=== PATIENT | male | born 1970 | race Caucasian/White ===

== ENCOUNTER 2021-04-12 15:31 | Outpatient (REF) | payer OTHER, SELFPAY | END 2021-04-12 15:32 | disposition home or self-care (01) | LOC: HO.LNP 15:31 | PROVIDERS: Visit Provider Physician Assistant Medical | DX: J98.8 Other specified respiratory disorders (principal); Z20.822 Contact with and (suspected) exposure to COVID-19 | CPT/HCPCS: U0003; U0005 ==

== ENCOUNTER 2021-11-13 14:59 | Outpatient (REF) | payer OTHER, SELFPAY ==
[2021-11-13 16:41] LABS: Anion Gap 14 (12-20); Blood Urea Nitrogen 16 mg/dL (9-16); Calcium 9.4 mg/dL (8.4-10.2); Carbon Dioxide 23 mmol/L (22-29); Chloride 103 mmol/L (96-108); Estimated Glomerular Filt Rate > 60; Glucose Random 269 mg/dL (60-115); Potassium 4.2 mmol/L (3.3-5.1); Sodium 136 mmol/L (135-145)
== END 2021-11-13 15:00 | disposition home or self-care (01) ==
LOC: HO.HMGCLDS 14:59
PROVIDERS: PCP Hospitalist; Visit Provider Hospitalist
DX: M54.42 Lumbago with sciatica, left side (principal)
CPT/HCPCS: 36415; 80048

== ENCOUNTER 2024-08-17 11:07 | Emergency (ER) | payer MEDICAID, SELFPAY ==
[2024-08-17 11:31] VITALS: BP 168/78; PULSE 74; RESP 18; TEMP 36.7; O2SAT 95; BMI 33.5
--- NOTE | 2024-08-17 11:31 | ED_ITS ---
HPI - Skin/Abscess/Foreign Bdy General Chief complaint: Skin/Abscess/Foreign Body Stated complaint: cyst on back Time Seen by Provider: 08/17/24 12:00 Source: patient and RN notes reviewed Mode of arrival: ambulatory Limitations: no limitations History of Present Illness ED Provider: Elisa Chavez PA-C HPI narrative: This is a 53-year-old male, prediabetic, who presents emergency department with concerns for cyst on back. Patient states that he has had this excised twice, once in 2014, another time several years ago. He states that over the last several days he has had increased pain and swelling. He also states that he has had increased drainage from this region. Denies any fevers or chills. He has been applying warm compresses to the ear without any relief. No other complaints or concerns at this time. MD complaint: abscess/boil Onset (ago): year(s) Relieving factors: none Exacerbating factors: none Context: none Associated symptoms: denies other symptoms Treatments prior to arrival: none Related Data Previous Rx's ?Medication ?Instructions ?Recorded cyclobenzaprine 10 mg tablet 10 mg PO TID PRN muscle spasm #90 10/31/21 tabs gabapentin 300 mg capsule 300 mg PO BEDTIME #30 caps 10/31/21 FreeStyle Lancets 28 gauge #100 ea 11/24/21 (lancets) FreeStyle System Kit #1 ea 11/24/21 (blood-glucose meter) metformin 500 mg tablet,extended 500 mg PO BID #60 tabs 12/02/21 release 24 hr ibuprofen 600 mg tablet 600 mg PO Q6H PRN for pain #90 tabs 12/17/21 blood sugar diagnostic (FreeStyle #100 ea 12/29/21 Test strips) cephalexin 500 mg capsule 500 mg PO QID 5 days #20 caps 08/17/24 Allergies Allergy/AdvReac Type Severity Reaction Status Date / Time No Known Allergies Allergy Verified 08/17/24 11:33 Review of Systems 2 Review of Systems: Yes all other systems are reviewed and are negative Constitutional: Constitutional: Reports as per HPI [facility] Family History Family History Father Arthritis Mother Arthritis Brother Diabetes Social History Social History Household Members: Spouse Housing: House Alcohol intake: current Alcohol intake frequency: holidays/special occasions only Patient Tobacco Use Status: Never used Tobacco Advance Directives: No Advance Directives Information Provided: Yes Do you have a plan to hurt others: No Plan Physical Exam 2 Vital Signs: Vital Signs: Last Vital Signs Temp 98.0 F 08/17/24 11:31 Pulse 74 08/17/24 11:31 Resp 18 08/17/24 11:31 BP 168/78 H 08/17/24 11:31 Pulse Ox 95 08/17/24 11:31 O2 Del Method Room Air 08/17/24 11:31 BMI result Body Mass Index 33.5 Const: General: cooperative, comfortable and no acute distress O rientation/consciousness: patient oriented x3 Limitations: no limitations HEENT: Head: Yes normal to inspection, Yes normocephalic and Yes atraumatic Ears: hearing grossly normal bilaterally General nose exam: Normal external nose present Face and sinus: Yes normal facial exam Mouth: Normal oral and palatal mucosa present, oropharynx normal and moist mucous membranes Throat: Yes posterior oropharynx normal Eyes: General: appearance normal, both eyes and all related structures E yelids: Yes eyelids normal Conjunctivae: conjunctivae normal Sclerae: s clerae normal Pupils: Equal, round and reactive pupils present EOM: EOMs intact bilaterally Neck: Neck: Yes normal visual inspection, Yes full ROM and Yes no lymphadenopathy Lymphatic: no lymphadenopathy noted Chest: Chest palpation & inspection: normal inspection of the chest Resp: Effort & Inspection: normal respiratory effort and able to speak in complete sentences Auscultation: clear to auscultation bilaterally, no crackles, no rales, no rhonchi and no wheezes Cardio: Rate: regular rate Rhythm: regular rhythm Heart sounds: S1 normal heart sound present and S2 normal heart sound present GI: Inspection: Yes normal to inspection Skin: Other: Mid upper back, with 2 x 2 round palpable mass, no induration, scant erythema noted, no warmth. No drainage noted. General skin exam: no rashes or lesions noted Trauma: no lacerations or abrasions Wounds: no wounds Neuro: General: patient oriented x3 and moves all extremities Cranial nerves: Yes Equal, round and reactive pupils present Extrem: General: Yes normal to inspection Right upper extremity: normal to inspection Left upper extremity: normal to inspection Right lower extremity: normal to inspection Left lower extremity: normal to inspection Course Course Course Narrative: This is a rapid medical exam performed by Kisha Villegas PA-C. The patient is a 53-year-old male with a history of diabetes, recurrent cyst on his back, who presents with concerns for infected cyst. Patient is hemodynamically stable, small swelling upper mid back, no overlying erythema, no active drainage from the site, mild tenderness to palpation. There was no indication for labs or imaging at this point. The patient is stable and can return to the waiting room pending his full assessment. Medical Decision Making Medical Decision Making MDM Narrative: This is a 53-year-old male who presents emergency department with complaints of cyst on upper back for the last 10 years. On arrival, patient mildly hypertensive at 168/78 while the vital signs within normal limits. Physical exam findings with 2 x 2 area of induration, consistent with a cyst. He does have slight erythema noted, will treat with Keflex. Advised that this is not something we would excise and drainage as the likelihood of it coming back would be high. Advised to follow-up with the surgeon, given general surgeons number for him to call. He understands agrees with plan. Will discharge on Keflex. Given strict return precautions. Stable for discharge Differential Diagnosis Differential Diagnoses: The differential diagnosis associated with the presentation includes Cyst, abscess, cellulitis Discharge Plan Discharge Clinical Impression: Lump of skin of back Patient Disposition: Home, Self-Care Instructions: Cyst (ED) Additional Instructions: You were seen in the emergency department due to a cyst on your back. I am starting you on antibiotics, take as prescribed. You need to follow-up with the surgeon, they will be able to excise this for you. Call to make an appointment. If any new or worsening symptoms occur including but not limited to increased swelling, redness, fevers or chills, please seek emergent care. Prescriptions: New cephalexin 500 mg capsule 500 mg PO QID 5 Days Qty: 20 0RF No Action gabapentin 300 mg capsule 300 mg PO BEDTIME Qty: 30 0RF cyclobenzaprine 10 mg tablet 10 mg PO TID PRN (Reason: muscle spasm) Qty: 90 0RF (DME) lancets [FreeStyle Lancets] 28 gauge misc See Rx Instructions .ROUTE .MEDSUPPLY Qty: 100 8RF Rx Instructions: blood sugar checks twice a day and as needed for symtpoms (DME) blood-glucose meter [FreeStyle System Kit] Kit See Rx Instructions .Route Qty: 1 0RF Rx Instructions: blood sugar checks ibuprofen 600 mg tablet 600 mg PO Q6H PRN (Reason: for pain) Qty: 90 1RF (DME) FreeStyle Test Strip See Rx Instructions .Route Qty: 100 0RF Rx Instructions: blood sugar checks twice a day and prn for s/s of high or low bs metformin 500 mg tablet extended release 24 hr 500 mg PO BID Qty: 60 3RF Rx Instructions: titrating up to dose to enhance tolerance pt will take 500mg once a day for 7 days then increase to two once he is taking dose I will give him one tab Referrals: [facility] [Provider Group] Print Language: Moldovan
[2024-08-17 12:52] VITALS: BP 168/78; PULSE 74; RESP 18; TEMP 36.7; O2SAT 95
== END 2024-08-17 12:52 | disposition home or self-care (01) ==
PROVIDERS: Emergency Provider Emergency Medicine
DX: L72.9 Follicular cyst of the skin and subcutaneous tissue, unspecified (principal)
CPT/HCPCS: 99282; 99283

== ENCOUNTER 2024-08-23 07:58 | Outpatient (AMB) | payer MEDICAID, SELFPAY ==
--- NOTE | 2024-08-23 08:07 | A.OFFVIS_ITS ---
Vital Signs 08/23/24 08:10 Height 6 ft 1 in Weight 256 lb BMI 33.8 BP 167/91 H Blood Pressure Location Rt brachial Position Sitting Pulse 80 Intake Visit Reasons: cyst on back Intake Note: Patient referred after ER visit for cyst on Lt upper back. Present for yrs. Patient c/o: has been I&Ded X2 in the past. Denies oozing, pain. Cost Control Supervisor Required: No Accompanied by: Self / Same As Patient Allergies No Known Allergies Allergy (Verified 08/23/24 08:08) HPI Comments Details: Patient presents with a recurrent recurrent left mid back sebaceous cyst/mass. He had this excised on 2 different occasions at outside facilities and it has persisted. He has occasional drainage and discomfort. He feels that his also increasing in size. He has no such lesions elsewhere. Chart was reviewed and patient evaluated [facility] Medical History Diabetes Family History Father Arthritis Mother Arthritis Brother Diabetes Social History Household Members: Spouse Housing: House Alcohol intake: current Alcohol intake frequency: holidays/special occasions only Patient Tobacco Use Status: Never used Tobacco Physical Exam Vital Signs: Last Vital Signs Pulse 80 08/23/24 08:10 BP 167/91 H 08/23/24 08:10 BMI result Body Mass Index 33.8 Chest Other: Chest breath sounds bilaterally, HS 1 in 2 GI Other: Abdomen corpulent, soft, benign Back/Spine/Pelvis Other: Patient has left mid back scar and a mass consistent with a large sebaceous cyst measuring roughly 4 x 4 cm. Assessment & Plan Assessment & Plan (1) Sebaceous cyst: Code(s): L72.3 - Sebaceous cyst Category: Surgical Plan Risks, benefits, alternatives of excision of recurrent left upper back sebaceous cyst/mass were reviewed with the patient and included but not limited to bleeding, infection, recurrence, numbness, pain, scarring, was seroma formation, wound dehiscence and the patient wishes to proceed. All questions answered. Arrangements were made for this on a day which is convenient for him. Coding Level of Care Code New Pt Level 5 (51203) Diagnoses Sebaceous cyst L72.3
[2024-08-23 08:10] VITALS: BP 167/91; PULSE 80; BMI 33.8
== END 2024-08-23 08:34 | disposition home or self-care (01) ==
PROVIDERS: Visit Provider Surgery
DX: L72.3 Sebaceous cyst (principal)
CPT/HCPCS: 99204

== ENCOUNTER → 2024-08-23 07:58 | Outpatient (BNVA) | payer MEDICAID, SELFPAY | PROVIDERS: Visit Provider Surgery | DX: L72.3 Sebaceous cyst (principal) | CPT/HCPCS: 99202 ==